=== PATIENT | female | born 1995 | race Caucasian/White ===

== ENCOUNTER 2018-11-26 03:32 | Emergency (ER) | payer OTHER ==
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
[2018-11-26 04:25] VITALS: BP 115/67
== END 2018-11-26 04:24 | disposition home or self-care (01) ==
PROC: 0HQKXZZ Repair Right Lower Leg Skin, External Approach (ICD-10-PCS; principal; 2018-11-26)
DX: S81.811A Laceration without foreign body, right lower leg, initial encounter (principal); S91.011A Laceration without foreign body, right ankle, initial encounter; W22.8XXA Striking against or struck by other objects, initial encounter; Y93.01 Activity, walking, marching and hiking; Y92.410 Unspecified street and highway as the place of occurrence of the external cause; Y99.9 Unspecified external cause status